=== PATIENT | male | born 1990 | race Caucasian/White ===

== ENCOUNTER 2016-10-09 22:19 | Emergency (ER) | payer SELFPAY ==
[~2016-10-09] VITALS: Ht 172.7 cm; Wt 76.4 kg
[2016-10-09] MEDS ORDERED: IBUPROFEN 800 MG TABLET PO ONE (22:45)
[2016-10-09] MEDS ORDERED: PERTUSS(ACELL),DIPH,TET VAC/PF 0.5 ML VIAL IM ONE (22:45)
[2016-10-09] MEDS ORDERED: SODIUM CHLORIDE 0.9% 250 ML IRRIG SOLUTION BOTTLE IRRIG ONE (22:45)
[2016-10-09 23:54] VITALS: BP 145/77
== END 2016-10-10 00:12 | disposition home or self-care (01) ==
LOC: EMS 22:21 → EEVIPCON 22:21 → EMS 10-10 00:12
DX: S81.012A Laceration without foreign body, left knee, initial encounter (principal); F12.90 Cannabis use, unspecified, uncomplicated; Z02.89 Encounter for other administrative examinations; W18.30XA Fall on same level, unspecified, initial encounter; Y93.02 Activity, running; Y92.89 Other specified places as the place of occurrence of the external cause; Y99.8 Other external cause status
CPT/HCPCS: 29530; 90471; 90715; 99284

== ENCOUNTER 2024-08-04 23:58 | Emergency (ER) | payer SELFPAY | END 2024-08-05 00:48 | disposition left against medical advice (07) | LOC: EMS 23:58 | DX: Z53.21 Procedure and treatment not carried out due to patient leaving prior to being seen by health care provider (principal) ==